=== PATIENT | male | born 1975 | race African-American/Black ===

== ENCOUNTER → 2016-07-29 | Outpatient (CLI) | payer OTHER ==
[~2016-07-29] MED LIST: FLEXERIL10 MG PO; IBUPROFEN800 MG PO; INDOCIN PO; INDOMETHACIN50 MG PO; NO MEDICATIONS; PAIN RELIEF EX500 MG PO; ROBITUSSIN A-C S5 ML PO; THERAFLU FLU; [UNRECOGNIZED DRUG - OTHER]
== END | disposition home or self-care (01) ==
LOC: CECH 06:40
DX: I51.7 Cardiomegaly (principal)
CPT/HCPCS: 93312; J2250; J3010